=== PATIENT | male | born 1975 | race Two or more races ===

== ENCOUNTER 2018-03-11 12:15 | Emergency (ER) | payer MEDICAID ==
[2018-03-11] MEDS: DIPHTH/TET/ACEL PERTUSS (ADULT) 0.5 ML VIAL IM* (12:48)
[2018-03-11] MEDS: LIDOCAINE 1% (MDV) 20 ML INJ SC (13:12)
[2018-03-11] MEDS: LIDOCAINE 1% (MPF) 5 ML VIAL INJ (13:13)
[2018-03-11] MEDS: LIDOCAINE 1% (MPF) 5 ML VIAL SC (13:17)
== END 2018-03-11 14:11 | disposition home or self-care (01) ==
LOC: FTE 14:11
DX: S61.210A Laceration without foreign body of right index finger without damage to nail, initial encounter (principal); F17.210 Nicotine dependence, cigarettes, uncomplicated; W25.XXXA Contact with sharp glass, initial encounter; Y92.9 Unspecified place or not applicable; Z23 Encounter for immunization
CPT/HCPCS: 12002; 90471; 90715; 99283-25